=== PATIENT | male | born 1945 | race Caucasian/White ===

== ENCOUNTER → 2016-11-19 | Day surgery (SDC) | payer MEDICARE ==
[~2016-11-19] MED LIST: BUPIVACAINE/EPINEPHRINE 0.25% PF 30 ML VIAL ONE; KETOROLAC TROMETHAMINE 30 MG/ML (IVP) VIAL IV PUSH ONE; LACTATED RINGER'S 1000 ML INJ 1,000 ML ONE; ONDANSETRON HCL 4 MG/2 ML VIAL IV PUSH ONE; PROPOFOL 200 MG/20 ML AMP IV ONE; SODIUM CHLORIDE 0.9% 250 ML ADDBAG IV ONE; VANCOMYCIN HCL 1000 MG VIAL ONE
--- NOTE | 2016-11-19 14:54 | TN ---
cc: DARLING ADAMSON M.D. DATE OF SURGERY: 11/19/2016 PREOPERATIVE DIAGNOSIS Symptomatic right inguinal hernia. POSTOPERATIVE DIAGNOSIS 1. Symptomatic right inguinal hernia. 2. Large indirect right inguinal hernia. PROCEDURE PERFORMED Laparoscopic right inguinal hernia repair with mesh. SURGEON Darling Adamson AMMONIA TECHNICIAN CELESTE Sin ANESTHESIA General LMA. COMPLICATIONS None. INDICATION FOR PROCEDURE Mr. English is a pleasant 71-year-old gentleman who has symptomatic moderate to large right inguinal hernia. He was seen and evaluated in the office and offered elective repair. The risks and benefits of open and laparoscopic repair was discussed with him and he elected laparoscopic. The risks and benefits of the procedure was discussed in detail with him and he is agreeable. DETAILS OF PROCEDURE The patient was identified, brought to the operating room and placed supine on the operating table. After adequate general anesthesia was achieved with an LMA, the anterior abdomen and groins were prepped and draped in a standard surgical fashion. 0.25% Marcaine was injected in the skin and subcutaneous tissue in the infraumbilical ridge. An infraumbilical incision was made. Dissection was carried down through the subcutaneous tissue to the anterior rectus fascia. The anterior rectus fascia was then incised vertically off the midline. The rectus muscle was then retracted laterally. The preperitoneal space was entered with blunt finger dissection. A blunt dissecting balloon was then inserted and insufflated with 30 pumps of air under direct vision using a 0-degree laparoscope. The balloon dissector was then removed and the balloon trocar inserted. The preperitoneal space was insufflated to 11 mmHg using CO2 gas. Next, two 5 mm trocars were placed in the lower midline under direct vision. Attention was first directed medially where Hema's ligament and pubic tubercle were identified. Dissection proceeded out laterally identifying the cord structures exiting the internal ring. Traveling with the cord structures was a fairly large peritoneal sac. Using [id number] technique the sac was carefully dissected off of the cord structures. This significant distance down the inguinal canal. We were able to retrieve the entire peritoneal sac out of the inguinal canal. Because of the excessive amount of peritoneal sac, I elected to suture ligated it at its base. The hernia sac was suture ligated at its base with a 2-0 Vicryl Endoloop. The distal sac was then transected and discarded. Next, a posterior window was made behind the cord structures. A piece of polypropylene mesh was inserted with a slit cut for the cord structures through the posterior window. The slit was then re-approximated tightening the internal ring appropriately. This was accomplished using the ProTack device. ProTacks were then used to secure the mesh medially at Hema's ligament and pubic tubercle and superiorly along the posterior abdominal wall fascia. An onlay mesh was then placed over the slit to buttress it. This was placed medially and laterally. With this the indirect and direct spaces were well covered by mesh with generous overlap. 0.25% Marcaine was injected at the operative field. The inferior border of the mesh was then held down and the preperitoneal space was desufflated. The peritoneum was found to roll up over the mesh. All trocars removed under direct vision. We did get some CO2 in the abdominal cavity when we were dissecting out the sac. We therefore made a small hole in the peritoneum at the umbilicus to allow the gas to escape. Once we did this the anterior rectus fascia was closed with 0 Vicryl in a [id number] fashion. Skin was closed with 4-0 Vicryl. The patient tolerated the procedure well, was awakened and brought to Recovery in stable condition.The [employer] medical assistant ob gyn was medically necessary due to her specialized surgical skills and knowledge of my surgical technique. MD LUPE Bolanos/BRYCE /2:28 PM /2:41 PM [facility]
== END | disposition home or self-care (01) ==
LOC: ESDC 11:52
PROVIDERS: ATTEND Surgery Trauma Surgery
DX: K40.90 Unilateral inguinal hernia, without obstruction or gangrene, not specified as recurrent (principal)
CPT/HCPCS: 00840; 49650; C1727; C1781; J1885; J2405; J3010; J3370; J7120

== ENCOUNTER 2018-01-01 13:05 | Emergency (ER) | payer MEDICARE ==
[~2018-01-01] VITALS: Ht 180.3 cm; Wt 110.0 kg
[2018-01-01 13:17] VITALS: BP 152/87; PULSE 123; RESP 20; TEMP 98.8; O2SAT 97
--- NOTE | 2018-01-01 14:23 | RADRPT ---
EXAM DATE/TIME: 01/01/2018 13:41 [facility] COMPARISON: No previous studies available for comparison. INDICATIONS : A-fib, short of breath. MEDICAL HISTORY : A-fib SURGICAL HISTORY : None. ENCOUNTER: Initial ACUITY: 1 day PAIN SCORE: 0/10 LOCATION: Bilateral chest FINDINGS: A single view of the chest demonstrates the lungs to be symmetrically aerated without evidence of mas s, infiltrate or effusion. Linear scarring is seen involving the minor fissure. The cardiomediastina l contours are unremarkable. Osseous structures are intact. 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 CONCLUSION: No acute disease. Se Neal Jr., MD on January 01, 2018 at 14:21 Board Certified Radiologist. This report was verified electronically.
== END 2018-01-01 16:37 | disposition left against medical advice (07) ==
LOC: NED 13:05
DX: R06.02 Shortness of breath (principal)
CPT/HCPCS: 71045; 99281